=== PATIENT | male | born 1975 | race Hispanic/Latino ===

== ENCOUNTER 2017-06-24 20:25 | Emergency (ER) | payer SELFPAY ==
[~2017-06-24 20:25] MED LIST: LEVO500T2 PO; METR500T PO
== END 2017-06-24 20:59 | disposition home or self-care (01) ==
LOC: EDH 20:25
DX: K13.0 Diseases of lips (principal); Z72.0 Tobacco use

== ENCOUNTER → 2024-10-15 | Outpatient (CLI) | payer OTHER, MEDICARE ==
--- NOTE | 2024-10-15 10:38 | HMCIMG ---
US ABDOMINAL RUQ\E\LTD HISTORY: abn liver function tests COMPARISON: None FINDINGS: There is normal sonographic appearance of the liver. There are no focal liver masses. The liver is not enlarged. The liver length is 17 cm. There is grade 1 hepatic steatosis. There is a normal-appearing gallbladder. Gallbladder wall thickness is 0.2 cm. Common duct is normal. The common bile duct measures 0.4 cm the Right kidney is normal with no evidence of mass, hydronephrosis or stone.The right kidney measures 11.4 x 4.3 x 5.6 cm. IMPRESSION: 1. Grade 1 hepatic steatosis the liver 2. Normal right upper quadrant sonogram
== END | disposition home or self-care (01) ==
LOC: RAH 07:25
PROVIDERS: ATTEND Internal Medicine
DX: K76.0 Fatty (change of) liver, not elsewhere classified (principal); R94.5 Abnormal results of liver function studies
CPT/HCPCS: 76705